=== PATIENT | male | born 1970 | race Caucasian/White ===

== ENCOUNTER 2021-03-08 16:16 | Emergency (ER) | payer OTHER, SELFPAY ==
[2021-03-08] VITALS (10 sets, daily range): BP systolic 176–212; BP diastolic 99–111; PULSE 90–127; RESP 15–23; TEMP 36.8; O2SAT 97–100
--- NOTE | ~2021-03-08 | CT_ITS ---
EXAMINATION: CT brain wo con INDICATION: Headache COMPARISON: None TECHNIQUE: Standard unenhanced head CT. The dose-length product (DLP) was 605.33 mGy-cm. The mA was a djusted according to patient size. Iterative reconstruction technique was employed. FINDINGS: There is no intracranial hemorrhage, acute infarction, or abnormal mass lesion. The ventric les are normal. There is no abnormal mass effect or midline shift. The garcia-white matter differentiat ion is normal. The basal cisterns are patent. The orbits are normal. The paranasal sinuses, mastoids and calvarium are normal. IMPRESSION: 1. No acute intracranial abnormality. Reviewed, dictated and finalized at location A.
--- NOTE | 2021-03-08 16:18 | ECG_ITS ---
Measurements Intervals [place] Rate: 112 P: 43 GA: 140 QRS: 19 QRSD: 110 T: 62 QT: 394 QTc: 539 Interpretive Statements SINUS TACHYCARDIA INCOMPLETE RIGHT BUNDLE BRANCH BLOCK DELAYED PRECORDIAL R/S TRANSITION ABNORMAL ECG Electronically Signed On 03-08-2021 20:09:04 CDT by Sterling Castellanos D.O.
[2021-03-08 17:54] LABS: Basophils Absolute Auto 0.1 K/mm3 (0.0-0.1); Basophils Percent Auto 1.1 % (0.2-1.2); Eosinophils Percent Auto 0.1 % (0-4.4); Hematocrit 41.4 % (42.0-52.0); Hemoglobin 13.1 g/dL (14.0-18.0); Immature Granulocyte Absolute 0.03 K/mm3 (0.00-0.031); Immature Granulocyte Percent A 0.3 % (0-0.5); Lymphocytes Absolute Auto 1.33 K/mm3 (0.9-3.2); Lymphocytes Percent Auto 13.4 % (18.3-44.2); Mean Corpuscular HGB Conc 31.6 g/dl (32-36); Mean Corpuscular Hemoglobin 28.1 pg (26-34); Mean Corpuscular Volume 88.8 fl (80-100); Mean Platelet Volume 9.7 fl (7.4-10.4); Monocytes Absolute Auto 0.7 K/mm3 (0.1-0.6); Monocytes Percent Auto 7.3 % (2.6-8.5); Neutrophils Absolute Auto 7.7 K/mm3 (1.3-6.7); Neutrophils Percent Auto 77.8 % (45.5-73.1); Platelet Count Result 282 k/mm3 (150-375); Red Blood Count 4.66 M/mm3 (4.6-6.20); Red Cell Distribution Width 13.3 % (11.5-14.5); White Blood Count 9.9 K/mm3 (4.5-10.0)
[2021-03-08 18:03] LABS: Alanine Aminotransferase 23 U/L (4-50); Alkaline Phosphatase 83 U/L (38-126); Anion Gap 10 mmol/L (8-16); Aspartate Amino Transferase 43 U/L (17-59); Bilirubin,Total 0.9 mg/dL (0.2-1.3); Blood Urea Nitrogen 11 mg/dL (9-20); Calcium 9.7 mg/dL (8.4-10.2); Carbon Dioxide 26 mmol/L (22-30); Chloride 96 mmol/L (98-107); Estimated CRCL calculation 104 ml/min; Estimated Glomerular Filt Rate > 60; Glucose 117 mg/dL (65-110); Potassium 3.9 mmol/L (3.4-5.0); Sodium 132 mmol/L (137-145)
--- NOTE | 2021-03-08 18:04 | ED.GENADULT ---
HPI - General Adult General Chief complaint: Recheck/Abnormal Lab/Rx Stated complaint: htn Time Seen by Provider: 03/08/21 17:39 Source: patient and RN notes reviewed History of Present Illness HPI narrative: Patient is a 50 y/o male complaining of headache and vomiting starting about 6 hours ago. He states that his headache is mild and describes it as diffuse pressure. He checked his BP and noticed it was in 190s. He states that he has history of hypertension and he has been compliant with his medications. Related Data Allergies Allergy/AdvReac Type Severity Reaction Status Date / Time NKDA Allergy Unknown Unknown Uncoded 03/08/21 18:02 NKFA Allergy Unknown Unknown Uncoded 03/08/21 18:02 Review of Systems Constitutional: Constitutional: Denies chills, Denies fever(s), Reports headache(s) and Denies weakness Eyes: Eyes: Denies blurry vision ENT: Reports headache(s) and Denies neck pain Cardiovascular: Cardiovascular: Denies chest pain and Denies dyspnea Respiratory: Respiratory: Denies cough and Denies dyspnea Gastrointestinal: Gastrointestinal: Denies abdominal pain, Denies diarrhea, Reports nausea and Reports vomiting Genitourinary: Genitourinary: Denies hematuria and Denies dysuria Musculoskeletal: Musculoskeletal: Denies back pain and Denies neck pain Neurologic: Reports headache(s) and Denies weakness [facility] Family History Family History Mother Family history of coronary artery disease Social History Social History Smoking status: Never smoker Alcohol intake: current Exam Const: General: no acute distress and well developed Orientation/consciousness: oriented to person, oriented to place, oriented to time and patient oriented x3 HENMT: Head: normocephalic Ears: external ears normal General nose exam: Normal external nose present Eyes: General: appearance normal, both eyes and all related structures Conjunctivae: conjunctivae normal Neck: Neck: normal visual inspection and full ROM Chest: Chest palpation & inspection: normal inspection of the chest and no tenderness Resp: Effort & Inspection: normal respiratory effort Auscultation: clear to auscultation bilaterally Cardio: Rate: tachycardic Rhythm: regular rhythm GI: GI Palp: No abdominal tenderness and Yes Soft to palpation Skin: General skin exam: normal color and turgor normal Neuro: General: oriented to person, oriented to place, oriented to time and patient oriented x3 Cranial nerves: Yes CN's II-XII intact bilaterally Cognition (Neuro): normal cognition Speech: normal speech Motor exam (neuro): 5/5 motor strength present throughout Sensory Exam: normal sensation Coordination: ebobnu-je-uxyx test normal and bqvi-ya-yfny test normal Extrem: General: normal to inspection, full ROM and no pedal edema Psych: Appearance: grossly normal Mental Status: mental status grossly normal Affect: Anxious affect present Course Reevaluation(s) Reevaluation #1: Rechecked. Patient feels better. He has no significant headache. Date: 03/08/21 Time: 20:17 Vital Signs Vital signs: Vital Signs Temperature 36.8 C 03/08/21 16:18 Pulse Rate 127 H 03/08/21 16:18 Respiratory Rate 17 03/08/21 16:18 Blood Pressure 212/106 H 03/08/21 16:18 Pulse Oximetry 100 03/08/21 16:18 Temperature 36.8 C 03/08/21 16:18 Pulse Rate 90 03/08/21 20:36 Respiratory Rate 18 03/08/21 20:36 Blood Pressure 176/99 H 03/08/21 20:36 Pulse Oximetry 99 03/08/21 20:36 Medical Decision Making Vital Signs Vital Signs: Vital Signs Temperature 36.8 C 03/08/21 16:18 Pulse Rate 127 H 03/08/21 16:18 Respiratory Rate 17 03/08/21 16:18 Blood Pressure 212/106 H 03/08/21 16:18 Pulse Oximetry 100 03/08/21 16:18 Temperature 36.8 C 03/08/21 16:18 Pulse Rate 90 03/08/21 20:36 Respiratory Rate 18 03/08/21 20:36 Blood P
[2021-03-08] MEDS: lisinopriL 20 MG TABLET PO (18:07)
[2021-03-08] MEDS: hydroCHLOROthiazide 25 MG TABLET PO (18:07)
[2021-03-08 18:29] LABS: Troponin I < 0.012 ng/mL (0.000-0.034)
== END 2021-03-08 20:38 | disposition home or self-care (01) ==
PROVIDERS: Emergency Provider Emergency Medicine
DX: I10 Essential (primary) hypertension (principal); R51.9 Headache, unspecified; R00.0 Tachycardia, unspecified; I45.10 Unspecified right bundle-branch block
CPT/HCPCS: 36415; 70450; 80053; 84484; 85025; 93005; 99284; A9270

== ENCOUNTER 2022-05-23 13:49 | Emergency (ER) | payer OTHER, SELFPAY ==
--- NOTE | ~2022-05-23 | XR_ITS ---
Clinical Indication: Cough PA and lateral views of the chest: Comparison: 06/26/2015 Findings: Stable dense right upper lobe pulmonary nodule measuring 3.3 cm in diameter. No other pulmo nary abnormality seen. Cardiomediastinal silhouette is within normal limits. Bones and soft tissues are unremarkable. Impression: Stable 3.3 cm dense right upper lobe pulmonary nodule. No acute abnormality seen. Reviewed, dictated and finalized at location . [employer] [facility] Impression: Stable 3.3 cm dense right upper lobe pulmonary nodule. No acute abnormality seen.
[2022-05-23 14:07] VITALS: BP 126/79; PULSE 107; RESP 20; TEMP 36.7; O2SAT 98
--- NOTE | 2022-05-23 14:07 | ED.URI ---
HPI - URI/Sore Throat General Chief Complaint: Upper Respiratory Infection Stated Complaint: fever,congestion,rib pain Time Seen by Provider: 05/23/22 14:07 Source: patient Mode of arrival: ambulatory Limitations: no limitations History of Present Illness HPI Narrative: 51-year-old male presents with complaint of, chest congestion fatigue, fever for 2-3 days. Reports today he is having rib pain/ soreness at rest and with coughing. Denies shortness of breath. Here because he is concerned that He may have pneumonia. Is taking whyo-qwz-icebqay medications without relief of cough. All systems reviewed and negative except as noted above. Related Data Home Medications Medication Instructions Recorded Confirmed amlodipine 10 mg tablet 10 mg PO DAILY 05/23/22 05/23/22 losartan 100 1 tablet PO DAILY 05/23/22 05/23/22 mg-hydrochlorothiazide 25 mg tablet pantoprazole 40 mg tablet,delayed 40 mg PO DAILY 05/23/22 05/23/22 release rosuvastatin 10 mg tablet 10 mg PO DAILY 05/23/22 05/23/22 Allergies Allergy/AdvReac Type Severity Reaction Status Date / Time NKDA Allergy Unknown Unknown Uncoded 05/23/22 14:06 Review of Systems Review of Systems: CONSTITUTIONAL: Denies fever, chills, or sweats. EYES: Denies visual changes, redness, or discharge. ENT: Denies rhinorrhea, congestion, sore throat, or otalgia. CARDIOVASCULAR: Denies chest pain, palpitations, or edema. RESPIRATORY: Reports cough, chest congestion. Denies dyspnea. GASTROINTESTINAL: Denies abdominal pain, nausea, vomiting, or diarrhea. GENITOURINARY: Denies dysuria or hematuria. SKIN: Denies rash or itching. MUSCULOSKELETAL: Denies back pain, joint pain, or myalgia. NEUROLOGIC: Denies headache, numbness, or weakness. PSYCHIATRIC: Denies anxiety or depression. All other systems reviewed are negative, except as documented in HPI. [facility] Family History Family History Mother Family history of coronary artery disease Social History Social History Smoking status: Never smoker Alcohol intake: current Comments At time of signature, agree with nursing past medical, surgical, social and family history. There is no relevant family history pertinent to the presenting complaint. Exam Narrative: GENERAL: This is a well-nourished, well-developed patient, in no apparent distress. HEAD: normocephalic, atraumatic. EYES: PERRL. Sclera clear/white. Vision is grossly intact. EARS: External ears normal, auditory canals clear and without drainage, TMs normal without perforation. Hearing grossly intact. NOSE: External nose normal with no obvious nasal discharge, nares without redness, no rhinorrhea. THROAT: Mucous membranes moist, posterior pharynx clear. NECK: Neck supple, non-tender without lymphadenopathy, masses or thyromegaly. CARDIOVASCULAR: Regular rate and rhythm without murmurs, gallops, or rubs. RESPIRATORY: Clear to auscultation. Breath sounds equal bilaterally. No wheezes, rales, or rhonchi. SKIN: warm, Dry, intact with no suspicious lesions or rash, good texture and turgor. NEURO: awake, alert, and oriented to person, place and time. There were no obvious focal neurologic abnormalities. EXTREMITIES: No joint tenderness, effusion, or edema noted. Course Course Level of Care: Express Care Visit Vital Signs Vital signs: Vital Signs Temperature 36.7 C 05/23/22 14:07 Pulse Rate 107 H 05/23/22 14:07 Respiratory Rate 05/23/22 14:07 Blood Pressure 126/79 05/23/22 14:07 Pulse Oximetry 98 05/23/22 14:07 Oxygen Delivery Room Air 05/23/22 14:07 Temperature 36.7 C 05/23/22 14:07 Pulse Rate 107 H 05/23/22 14:07 Respiratory Rate 05/23/22 14:07 Blood Pressure 126/79 05/23/22 14:07 Pulse Oximetry 98 05/23/22 14:07 Oxygen Delivery Room Air 05/23/22 14:07 reviewed MDM - URI/Sore Throat MDM Narrative Medi
== END 2022-05-23 14:45 | disposition home or self-care (01) ==
PROVIDERS: Emergency Provider Nurse Practitioner Family
DX: J06.9 Acute upper respiratory infection, unspecified (principal); R05.9 Cough, unspecified; Z20.822 Contact with and (suspected) exposure to COVID-19; E78.00 Pure hypercholesterolemia, unspecified; I10 Essential (primary) hypertension; K21.9 Gastro-esophageal reflux disease without esophagitis
CPT/HCPCS: 71046; 87426; 99213; C9803; G0463

== ENCOUNTER 2023-08-04 14:39 | Emergency (ER) | payer OTHER, SELFPAY ==
--- NOTE | ~2023-08-04 | CT_ITS ---
EXAMINATION: CT cervical spine wo con DATE: 08/04/2023 15:35 INDICATION: neck injury TECHNIQUE: Computed tomography (CT) of the cervical spine was performed without intravenous contrast. Automated exposure control and iterative reconstruction technique were employed. The dose-length pro duct was 406.78 mGy-cm. COMPARISON: None. FINDINGS: Vertebral Body Alignment: Intact. Craniocervical and atlantoaxial alignment: Moderate degenerative change. Alignment intact. Osseous structures/fracture: No evidence of a lytic or blastic process in the visualized spine. No e vidence of acute fracture. Cervical soft tissues: The paraspinal soft tissues planes are maintained. Degenerative changes: Degenerative changes, without severe neural foraminal or central canal narrowin g. IMPRESSION: No acute fracture or traumatic malalignment in the cervical spine. Reviewed, dictated and finalized at location K.
--- NOTE | ~2023-08-04 | CT_ITS ---
EXAMINATION: CT brain wo con DATE: 08/04/2023 15:35 INDICATION: head injury . TECHNIQUE: Computed tomography (CT) of the head was performed without intravenous contrast. The mA wa s adjusted according to patient size. Iterative reconstruction technique was employed. The dose-lengt h product was 681.00 mGy-cm. COMPARISON: 03/08/2021. FINDINGS: No acute intracranial hemorrhage or extra-axial fluid collection. No hydrocephalus, mass, or herniation. No acute ischemic infarct. Unremarkable dural venous sinus attenuation. No acute osseous abnormality. The aerated spaces are clear. IMPRESSION: No acute intracranial process. Reviewed, dictated and finalized at location K.
--- NOTE | ~2023-08-04 | XR_ITS ---
EXAM: XR hip RT 2V w AP pelvis DATE: 08/04/2023 15:37 HISTORY: right hip and knee injury . COMPARISON: None available. FINDINGS: Normal mineralization. No fracture or dislocation. No lytic or blastic lesion. Degenerativ e changes in the hips. No erosion or periosteal change. Soft tissues within normal limits. IMPRESSION: No acute osseous finding in the right hip or pelvis. Reviewed, dictated and finalized at location K.
--- NOTE | ~2023-08-04 | XR_ITS ---
EXAMINATION: XR ribs RT 2V Exam Date/Time: 08/04/2023 15:15 CDT HISTORY: right rib injury Comparison: 05/23/2022. RESULT: Lines, tubes, and devices: None. Lungs and pleura: Stable calcified benign pulmonary mass.. Lungs otherwise clear. Cardiothymic silhouette: Stable. Other: No acute osseous or upper abdominal finding. IMPRESSION: No acute cardiopulmonary process. No acute osseous finding in the right ribs Reviewed, dictated and finalized at location K.
--- NOTE | ~2023-08-04 | XR_ITS ---
EXAM: XR knee RT 3V DATE: 08/04/2023 15:36 HISTORY: knee injury/pain . COMPARISON: None available. FINDINGS: Partially visualized left knee hardware. Lateral view limited by obliquity. Normal minerali zation. No fracture or dislocation. No lytic or blastic lesion. Mild tricompartmental right knee oste oarthritis. No erosion or periosteal change. Soft tissue swelling over the patellar tendon. IMPRESSION: No acute osseous finding in the right knee. Reviewed, dictated and finalized at location K.
[2023-08-04 14:45] VITALS: BP 155/94; PULSE 97; RESP 19; TEMP 37.4; O2SAT 99
--- NOTE | 2023-08-04 14:47 | ECG_ITS ---
Measurements Intervals [place] Rate: 88 P: 27 CT: 170 QRS: -17 QRSD: 108 T: 12 QT: 375 QTc: 456 Interpretive Statements SINUS RHYTHM INCOMPLETE RIGHT BUNDLE BRANCH BLOCK DELAYED PRECORDIAL R/S TRANSITION LEFT VENTRICULAR HYPERTROPHY BORDERLINE ECG COMPARED TO ECG 03/08/2021 16:26:52 SINUS RHYTHM NOW PRESENT LEFT VENTRICULAR HYPERTROPHY NOW PRESENT Electronically Signed On 08-04-2023 19:04:20 CDT by Sterling Castellanos D.O.
[2023-08-04] MEDS: SODIUM CHLORIDE 0.9% IV 1,000 ML 999 ML IV CONT (14:56)
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
[2023-08-04 15:45] VITALS: BP 158/92; PULSE 90; RESP 20; O2SAT 99
[2023-08-04 15:51] LABS: Basophils Absolute Auto 0.14 K/mm3 (0.00-0.10); Eosinophils Absolute Auto 0.05 K/mm3 (0.02-0.50); Eosinophils Percent Auto 0.4 % (1.0-6.0); Hematocrit 38.7 % (40.0-54.0); Immature Granulocyte Percent A 0.7 % (0.0-0.0); Lymphocytes Absolute Auto 1.68 K/mm3 (1.10-4.50); Lymphocytes Percent Auto 12.5 % (18.0-42.0); Mean Corpuscular Hemoglobin 26.4 pg (27.0-31.0); Mean Corpuscular Volume 85.1 fL (78.0-102.0); Mean Platelet Volume 9.2 fl (8.7-11.0); Neutrophils Absolute Auto 10.62 K/mm3 (1.70-7.20); Neutrophils Percent Auto 79.4 % (50.0-70.0); Platelet Count Result 338 K/mm3 (150-420); Red Blood Count 4.55 M/mm3 (4.70-6.10); Red Cell Distribution Width 12.5 % (11.6-14.4); White Blood Count 13.4 K/mm3 (4.8-10.8)
[2023-08-04 16:06] LABS: Alanine Aminotransferase 36 U/L (16-63); Albumin Level 3.9 g/dL (3.4-5.0); Alkaline Phosphatase 73 U/L (46-116); Anion Gap 13 mmol/L (8-16); Aspartate Amino Transferase 23 U/L (15-37); Bilirubin,Total 0.5 mg/dL (0.00-1.00); Blood Urea Nitrogen 13 mg/dL (7-18); Calcium 8.8 mg/dL (8.5-10.1); Carbon Dioxide 24 mmol/L (21-32); Chloride 102 mmol/L (98-108); Creatine Kinase 203 U/L (39-308); Estimated CRCL calculation 58 ml/min; Estimated Glomerular Filt Rate > 60; Glucose 108 mg/dL (70-99); Osmolality Calculated 289 mOsm/kg (285-295); Potassium 3.4 mmol/L (3.5-5.1); Sodium 139 mmol/L (136-145); Total Protein 7.4 g/dL (6.4-8.2)
[2023-08-04 16:19] VITALS: BP 153/92; PULSE 96; RESP 19; TEMP 37.2; O2SAT 100
[2023-08-04] MEDS: IBUPROFEN 600 MG TABLET PO (16:23)
[2023-08-04] MEDS: POTASSIUM BICARBONATE 25 MEQ TABEF 50 MEQ PO (16:24)
== END 2023-08-04 16:30 | disposition home or self-care (01) ==
PROVIDERS: Emergency Provider Emergency Medicine
DX: S29.012A Strain of muscle and tendon of back wall of thorax, initial encounter (principal); I10 Essential (primary) hypertension; Z79.899 Other long term (current) drug therapy; Z20.822 Contact with and (suspected) exposure to COVID-19; V86.65XA Passenger of 3- or 4- wheeled all-terrain vehicle (ATV) injured in nontraffic accident, initial encounter
CPT/HCPCS: 36415; 70450; 71100; 72125; 73502; 73562; 80053; 82550; 85025; 93005; 96360; 99284; A9270; J7030

== ENCOUNTER 2024-06-03 08:00 | Emergency (ER) | payer OTHER, SELFPAY ==
[2024-06-03 08:14] VITALS: BP 145/79; PULSE 100; RESP 18; TEMP 36.4; O2SAT 100
--- NOTE | 2024-06-03 08:15 | ED.EAR ---
HPI - Ear Problem General Chief complaint: Ear Stated complaint: RT Ear Pain Time Seen by Provider: 06/03/24 08:16 Source: patient, RN notes reviewed and old records reviewed Mode of arrival: ambulatory Limitations: no limitations History of Present Illness HPI Narrative: patient presents with complaints of right ear pain that began yesterday. He reports that for a few days he has had a little bit of a runny nose, says this was not terribly bothersome. Began with ear pain and pressure last night. Reports that his took his temperature and told him he had a fever, but he is not sure what it was. He took [id number] medication with moderate relief. States that ear pain is not as bad this morning as it was yesterday, but is still painful. He denies any loss of hearing. He voices no other concerns or complaints at this time. Denies any injury or trauma Related Data Home Medications ?Medication ?Instructions ?Recorded ?Confirmed ?Last Taken ?Type amlodipine 10 mg tablet 10 mg PO DAILY 05/23/22 08/04/23 Unknown History losartan 100 1 tablet PO DAILY 05/23/22 08/04/23 Unknown History mg-hydrochlorothiazide 25 mg tablet pantoprazole 40 mg tablet,delayed 40 mg PO DAILY 05/23/22 08/04/23 Unknown History release rosuvastatin 10 mg tablet 10 mg PO DAILY 05/23/22 08/04/23 Unknown History gabapentin 300 mg capsule 300 mg PO BID 08/04/23 08/04/23 Unknown History Allergies Allergy/AdvReac Type Severity Reaction Status Date / Time NKDA Allergy Unknown Unknown Uncoded 06/03/24 08:09 Review of Systems Review of Systems: All systems reviewed & are unremarkable except as noted in HPI and below Constitutional: Constitutional: Reports no additional constitutional complaints ENT: Reports system reviewed and no additional complaints, except as documented, Reports otalgia and Reports nasal discharge Cardiovascular: Cardiovascular: Reports no additional cardiovascular complaints Respiratory: Respiratory: Reports no additional respiratory complaints Gastrointestinal: Gastrointestinal: Reports no additional gastrointestinal complaints [facility] Past Medical History Medical History Essential hypertension Family History Family History Mother Family history of coronary artery disease Social History Social History Smoking status: Never smoker Alcohol intake: current Comments At the time of my signature, I reviewed and agree with the nursing past medical, surgical, social, and family history. There is no relevant family history pertinent to the patient complaint. Exam Const: General: cooperative, no acute distress, alert and awake Orientation/consciousness: oriented to person, oriented to place and oriented to time HENMT: Head: normal to inspection Ears: TM abnormal erythematous on the right, with fluid behind the TM bilateral and with loss of landmarks on the right Resp: Effort & Inspection: normal respiratory effort and able to speak in complete sentences Auscultation: clear to auscultation bilaterally, no crackles, no rales, no rhonchi and no wheezes Cardio: Palpation: normal PMI Rate: regular rate Rhythm: regular rhythm Heart sounds: S1 normal heart sound present and S2 normal heart sound present Neuro: General: oriented to person, oriented to place and oriented to time Cranial nerves: Yes CN's II-XII intact bilaterally Psych: Appearance: grossly normal Thought process: Normal thought process present Insight: Good insight present (Psych) Judgement: Good judgement present (Psych) Course Course Level of Care: Express Care Visit Vital Signs Vital signs: Vital Signs Temperature 97.5 F L 06/03/24 08:14 Pulse Rate 100 06/03/24 08:14 Respiratory Rate 18 06/03/24 08:14 Blood Pressure 145/79 H 06/03/24 08:14 Pulse Oximetry 100 06/03/24 08:14 Oxygen Delivery Room Air 06/03/24 08:14 Temperature 97.5 F L 06/03/24 08:14 Pulse Rate 100 06/03/24 08:14 Respiratory Rate 18 06/03/24 08:14 Blood Pressure 145/79 H 06/03/24 08:14 Pulse Oximetry 100 06/03/24 08:14 Oxygen Delivery Room Air 06/03/24 08:14 Reviewed Medical Decision Making MDM Narrative Medical decision making narrative: history and exam consistent with otitis media. Patient nontoxic appearing, stable for discharge home with p.o. antibiotic therapy Discharge instructions reviewed with patient, as well as provided in writing per nursing staff. The instructions also include specific and strict return/GO TO THE ER as well as f/u information. All questions have been answered, and the patient deny any further questions with discharge and discharge plan. Some parts of this dictation were generated by voice recognition software and may contain typographical and/or grammatical inaccuracies. Differential Diagnosis Differential Diagnosis: otitis media, otitis externa, otalgia Medical Records Medical records reviewed: Yes I reviewed the external patient's medical records. Vital Signs Vital Signs: Vital Signs Temperature 97.5 F L 06/03/24 08:14 Pulse Rate 100 06/03/24 08:14 Respiratory Rate 18 06/03/24 08:14 Blood Pressure 145/79 H 06/03/24 08:14 Pulse Oximetry 100 06/03/24 08:14 Oxygen Delivery Room Air 06/03/24 08:14 Temperature 97.5 F L 06/03/24 08:14 Pulse Rate 100 06/03/24 08:14 Respiratory Rate 18 06/03/24 08:14 Blood Pressure 145/79 H 06/03/24 08:14 Pulse Oximetry 100 06/03/24 08:14 Oxygen Delivery Room Air 06/03/24 08:14 reviewed Lab Data Lab results reviewed: Yes I reviewed the patient's lab results. Lab results narrative: reviewed Discharge Plan Discharge Clinical Impression: Otitis media Qualifiers: Otitis media type: suppurative Chronicity: acute Laterality: right Recurrence: not specified as recurrent Spontaneous tympanic membrane rupture: without spontaneous rupture Qualified Code(s): H66.001 - Acute suppurative otitis media without spontaneous rupture of ear drum, right ear Patient Disposition: Home, Self-Care Condition: Stable Instructions: Antibiotic Form, Earache (ED) Additional Instructions: take medications as prescribed. Follow-up primary care provider. Emergency department for new or worse symptoms Patient Language: [place] Citizen Prescriptions: New amoxicillin 875 mg tablet 875 mg PO Q12H Qty: 20 0RF No Action gabapentin 300 mg capsule 300 mg PO BID losartan-hydrochlorothiazide 100-25 mg tablet 1 tablet PO DAILY amlodipine 10 mg tablet 10 mg PO DAILY pantoprazole 40 mg tablet,delayed release (DR/EC) 40 mg PO DAILY rosuvastatin 10 mg tablet 10 mg PO DAILY Follow-up/Referrals: Jacqueline,William [Other] - 2 Weeks Time of Disposition: 08:25
== END 2024-06-03 08:26 | disposition home or self-care (01) ==
PROVIDERS: Emergency Provider Nurse Practitioner Family
DX: H66.001 Acute suppurative otitis media without spontaneous rupture of ear drum, right ear (principal); I10 Essential (primary) hypertension
CPT/HCPCS: 99213; G0463

== ENCOUNTER 2024-12-31 15:15 | Emergency (ER) | payer OTHER, SELFPAY ==
--- OUTSIDE RECORDS SUMMARY | 2024-12-31 15:19 | XMS_ITS | Patient Health Record ---
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 Role Phone Maximino Rubi Unavailable [phone] Reason For Referral No Information Medications Medication SIG (Take, Route, Frequency, Duration) Notes Start Date End Date Status PIMECROLIMUS 1 % TOPICAL CREAM *Reorder from [facility] for eRx and Interaction Alerts* 06/12/2023 Active Doxycycline Hyclate 20 MG Oral 06/12/2023 Active Gabapentin 300 MG Oral 06/12/2023 A ctive Rosuvastatin Calcium 10 MG Oral 06/12/2023 Active amLODIPine Besylate 10 MG Oral 06/12/2023 Active HYDROcodone-Acetamino phen 10-325 MG Oral 06/12/2023 Active Losartan Potassium-HCTZ 100-25 MG Oral 06/12/2023 Active Naltrexone HCl 50 MG Oral 06/12/2023 Active Pantoprazole Sodium 40 MG Oral 06/12/2023 Active Plan Of Treatment No Information Insurance Providers Payer Name Payer Address Payer Phone Subscriber Number Group Number Insured Name Patient Relationship to Insured Coverage Start Date Coverage End Date [facility] [address] [place] [phone] [id number] JOSH CLEARY Self - patient is the insured Medical (General) History Surgical History Surgery Date(Month/Year) Reconstructive surgery 09/18/2022
--- OUTSIDE RECORDS SUMMARY | 2024-12-31 15:19 | XMS_ITS | Clinical Summary ---
Author Organization [employer] [address] [place] [address] [place] [id number] Care Team Providers Care Non Morse Intercept Technician Name Role Phone William Phillips DO Primary Care Provider [phone] Allergies No known active allergies Medications pimecrolimus (ELIDEL) 1 % Cream APPLY TOPICALLY TO FACE RASH TWICE DAILY NEEDED 06/03/19 24 Active buPROPion HCL (Wellbutrin XL) 150 mg Extended Release 24 hour tabletIndications :ALMA DELIA (generalized anxiety disorder) Take 1 Tablet (150 mg) by mouth daily in the morning. 90 Tablet 3 01/14/20 24 Active losartan-hydroCHL OROthiazide (HYZAAR) 100-25 mg tabletIndications :HTN (hypertension), benign TAKE 1 TABLET BY MOUTH DAILY 100 Tablet 3 11/08/19 25 Active amLODIPine (NORVASC) 10 mg tabletIndications :HTN (hypertension), benign TAKE 1 TABLET(10 MG) BY MOUTH DAILY 100 Tablet 3 12/24/19 25 Active pantoprazole (PROTONIX) 40 mg Tablet, Delayed Release (E.C.)Indications :Gastroesophageal reflux disease, unspecified whether esophagitis present TAKE 1 TABLET(40 MG) BY MOUTH DAILY 100 Tablet 3 12/24/19 25 Active rosuvastatin (CRESTOR) 10 mg tabletIndications :Hyperlipidemia, unspecified hyperlipidemia type TAKE 1 TABLET BY MOUTH AT BEDTIME 100 Tablet 3 12/24/19 25 Active pantoprazole (PROTONIX) 40 mg Tablet, Delayed Release (E.C.)Indications :Gastroesophageal reflux disease, unspecified whether esophagitis present TAKE 1 TABLET(40 MG) BY MOUTH DAILY 100 Tablet 3 11/05/19 24 025 Discontinued amLODIPine (NORVASC) 10 mg tabletIndications :HTN (hypertension), benign TAKE 1 TABLET(10 MG) BY MOUTH DAILY 100 Tablet 3 11/05/19 24 025 Discontinued rosuvastatin (CRESTOR) 10 mg tabletIndications :Hyperlipidemia, unspecified hyperlipidemia type take 1 tablet by mouth at bedtime 100 Tablet 3 11/05/19 24 025 Discontinued Active Problems Problem Noted Date Diagnosed Date Uncomplicated alcohol dependence 01/14/2024 Prediabetes 01/14/2024 ALMA DELIA (generalized anxiety disorder) 01/14/2024 LAURA (obstructive sleep apnea) 04/20/2022 Cyst of left kidney 09/27/2021 Varicose veins of both lower extremities 022 Gastroesophageal reflux disease 06/12/2019 Hyperlipidemia 06/12/2019 HTN (hypertension), benign 06/12/2019 Resolved Problems Problem Noted Date Diagnosed Date Resolved Date Alcohol dependence in remission 04/20/2023 01/14/2024 Heavy alcohol use 02/04/2021 04/20/2023 Obesity (BMI 30.0-34.9) 06/12/201905/22 Encounters Date Type Department Care Team Description 12/23/2024 Refill [facility], [address] [place] [phone] William Phillips DO HTN (hypertension), benign; Gastroesophageal reflux disease, unspecified whether esophagitis present; Hyperlipidemia, unspecified hyperlipidemia type 11/11/2024 External Device Data [facility] ABSTRACTION Provider, Abstract 11/07/2024 [facility], [address] [place] [phone] William Phillips DO HTN (hypertension), benign from Last 3 Months Immunizations Immunization Administration Dates Next Due (HihoCoder)(12 YR UP) COVID-19 VACCINE - EMERGENCY USE AUTHORIZATION, MRNA, [id number](PF) 30 MCG/0.3 ML IM SUSP 05/30/2021,08/20/2020,08/02/2020 INFLUENZA VACCINE QUADRIVALE NT 3 YR UP PF IM 02/04/2019 Influenza Seasonal Unspecifi ed Formulation IM 02/17/2021,02/04/2020 Family History Medical History Relation Name Comments Heart Failure Father Healthy Mother Anton Sin High Cholesterol Mother Anton Sin Hypertension Mother Anton Sin Colon Cancer Neg Hx Relation Name Status Comments Father Mother Anton Sin Alive Social History Tobacco Use Types Packs/Day Years Used Date Smoking Tobacco: Never Smokeless Tobacco: Never Alcohol Use Standard Drinks/Week Comments Yes 0 (1 standard drink = 0.6 oz pure alcohol) 10 drinks weekly- just weekends now Sex and Gender Information Value Date Recorded Sex Assigned at Male 02/13/2024 10:44 AM CDT 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 Gender Identity Male 02/13/2024 10:44 AM CDT Sexual Orientation Straight 02/13/2024 10 :44 AM CDT Last Filed Vital Signs Vital Sign Reading Time Taken Comments Blood Pressure 120/70 08/26/2024 1:19 PM CDT Pulse 86 08/26/2024 1:19 PM CDT Temperature 36.3 C (97.3 F) 08/26/2024 1:19 PM CDT Respiratory Rate 18 08/26/2024 1:19 PM CDT Oxygen Saturation 97% 08/26/2024 1:19 PM CDT Inhaled Oxygen Concentration - - Weight 95 kg (209 lb 6.4 oz) 08/26/2024 1:19 PM CDT Height 205.7 cm (6' 9) 08/26/2024 1:19 PM CDT Body Mass Index 22.44 08/26/2024 1:19 PM CDT Plan of Treatment Upcoming Encounters Date Type Department Care Team (Late st Contact Info) Description 08/26/2025 9:20 AM CDT Office Visit [facility], [address] [place] [phone] William Phillips DO [address] [phone] Health Maintenance Due Date Last Done Comments DTAP/TDAP/TD VACCINES (1 - Tdap) 1988 FIT-DNA Q 3 years 2014 FIT/FOBT Q 1 year 2014 Flex Sig/CT Colonography Q 5 years 2014 ZOSTER VACCINE (1 of 2) 08/28/2019 COVID-19 Vaccine (2023- 5 season) 2024 05/30/2021, 08/20/2020, 08/02/2020 INFLUENZA VACCINE (#1) 2024 , 08/26/2024, 04/20/2023, Additional history exists COLORECTAL SCREENING 08/05/2030 08/05/2020, 08/05/2020, 08/05/2020 Colorectal Cancer Screening 08/05/2030 Preventative Visit- Commercial Completed 0 08/26/2024, 01/14/2024, 10/13/2022, Additional history exists Procedures Procedure Name Priority Date/Time Associated Diagnosis Comments COLONOSCOPY REPORT 08/05/2020 7: 08 AM CDT from Last 3 Months or Most Recently Relevant to Health Maintenance Results * COLONOSCOPY REPORT (08/05/2020 7:08 AM CDT) Narrative Procedure Note William Grewal MD - 08/05/2020 7:07 AM CDT [facility] Endoscopy Patient Name: Mirza Sin Procedure Date: 08/05/2020 Date of : 1970 Admit Type: Outpatient Age: 49 Attending MD: William Grewal MD Procedure: Colonoscopy Indications: Colorectal cancer screening, avg risk family history. No prior exam of colon. Providers: William Grewal MD Referring MD: William Phillips DO Medicines: TIVA Procedure: Informed consent was obtained for the procedure, including moderate sedation after risks were discussed. Based on the pre-procedure assessment, including review of the patient's medical history, medications, allergies, and review of systems, the patient was deemed to be an appropriate candidate for sedation. A timeout was performed. Continuous ECG monitoring, pulse oximetry, blood pressure monitoring, and direct observation were performed. The Colonoscope was introduced through the anus and advanced to the cecum, identified by appendiceal orifice and ileocecal valve. The colonoscopy was performed without difficulty. The patient tolerated the procedure well. The quality of the bowel preparation was excellent. Estimated Blood Loss: Estimated blood loss: none. Findings: Internal hemorrhoids were seen on retroflexion. Remainder appeared normal to the cecum. No evidence for polyp, colon cancer or inflammatory bowel disease. Cecum and ileocecal valve well visualized and appeared normal. Complications: No immediate complications. Impression: 1. Internal hemorrhoids 2. Otherwise normal colonoscopy. No polyp or colon cancer. Recommendation: Reassurance. Repeat colonoscopy in 10 years for colon cancer screening. Follow up with Dr. Phillips for medical issues. William Grewal MD 08/05/2020 7:07:27 AM This report has been signed electronically. Number of Addenda: 0 Procedure Date: 08/05/2020 6:37:[address] [place] [address] William Grewal MD GI PROCEDURE ORDERABLES Final Re sult from Last 3 Months or Most Recently Relevant to Health Maintenance Insurance Advance Directives For more information, please contact: [phone] * Full Code (Latest Code Status on File) Date Activated Date Inactivated Comments 08/05/2020 6:35 AM 08/05/2020 10:10 AM Care Teams Non Morse Intercept Technician Relationship Specialty Start Date End Date William Phillips DO [address] [place] [address] PCP - General Internal Medicine 06/12/19
--- OUTSIDE RECORDS SUMMARY | 2024-12-31 15:19 | XMS_ITS | Clinical Summary ---
Author Organization [facility] Address [address] [place] [address] Care Team Providers Care [employer] Name Role Phone William Phillips DO Primary Care Provider [phone] Allergies No known active allergies Medications amLODIPine (NORVASC) 10 mg tablet Take 1 tablet (10 mg total) by mouth daily Active losartan-hydroc hlorothiazide (HYZAAR) 100-25 mg per tablet Take 1 tablet by mouth daily Active rosuvastatin (CRESTOR) 10 mg tablet Take 1 tablet (10 mg total) by mouth daily Active pantoprazole DR (PROTONIX) 40 mg EC tablet Take 1 tablet (40 mg total) by mouth daily Active aspirin 325 mg enteric coated tabletIndicatio ns:Deep Vein Thrombosis Prevention Take 1 tablet (325 mg total) by mouth 2 (two) times a day 0 09/19/2022 Active docusate sodium (COLACE) 100 mg capsuleIndicati ons:constipatio n Take 1 capsule (100 mg total) by mouth 2 (two) times a day 09/19/2022 Active Active Problems Problem Noted Date Diagnosed Date Total knee replacement status, left 09/18/2022 Osteoarthritis of left knee 09/11/2022 GERD (gastroesophageal reflux disease) HLD (hyperlipidemia) 09/11/2022 HTN (hypertension) 09/11/2022 LAURA (obstructive sleep apnea) 09/11/2022 Surgical History Surgery Date Site/Laterality Comments KNEE ARTHROSCOPY several UPPER GASTROINTESTINAL ENDOSCOPY Medical History Medical History Date Comments Osteoarthritis of left knee HTN (hypertension) HLD (hyperlipidemia) LAURA (obstructive sleep apnea) GERD (gastroesophageal reflux disease) Family History Medical History Relation Name Comments Heart disease Mother Relation Name Status Comments Mother Social History Tobacco Use Types Packs/Day Years Used Date Smoking Tobacco: Never Smokeless Tobacco: Never Tobacco Cessation:Counseling Given: Not Answered AUDIT-C Answer Date Recorded Q1: How often do you have a drink containing alc ohol? 2-3 times a week 09/11/2022 Q2: How many drinks containi ng alcohol do you have on a typical day when you are drinking? 3 or 4 09/11/2022 Q3: How often do you have si x or more drinks on one occasion? Weekly 09/11/2022 Personal Safety Answer Date Recorded Have you ever been in or are you currently in a harmful physical or emotional relationship or is someone making you feel afraid or unsafe? 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 Gender Identity Not on file Sexual Orientation Not on file Obstetrics History Last Filed Vital Signs Vital Sign Reading Time Taken Comments Blood Pressure 132/80 09/19/2022 8:44 AM CDT Pulse 79 09/19/2022 8:44 AM CDT Temperature 36.7 C (98 F) 09/19/2022 8:44 AM CDT Respiratory Rate 17 09/19/2022 8:44 AM CDT Oxygen Saturation 100% 09/19/2022 8:44 AM CDT Inhaled Oxygen Concentration - - Weight 87 kg (191 lb 12.8 oz) 09/18/2022 6:17 AM CDT Height 172.7 cm (5' 8) 09/18/2022 6:17 AM CDT Body Mass Index 29.16 09/18/2022 6:17 AM CDT Plan of Treatment Health Maintenance Due Date Last Done Comments Colon Cancer Screening-Colonoscopy 1970 Depression Screening 1970 Hepatitis C Screening 1970 Prostate Cancer Screening-PSA 1969 DTaP/Tdap/Td Vaccine (1 - Tdap) 1980 Hepatitis B Screening 08/28/1987 Regular Well Visit/Exam 18-64 08/28/1987 Zoster Vaccine (1 of 2) 08/28/2019 Covid-19 Vaccine ( season) 2024 05/30/2021, 05/09/2021, 08/20/2020, Additional history exists Influenza Vaccine (#1) 2025 , 02/17/2021, 02/04/2020, Additional history exists Pneumococcal vaccine <65 Aged Out No longer eligible based on patient's age to complete this topic Medical Devices Implanted Type Area Senior C Web Developer Device Identifier Shelf Expiration Date Model / Serial / Lot [employer] [id number] Persona Cruciate Retaining Knee Left 9 Standard Component Femoral - [id number] Implanted:Qty: 1 on 09/18/2022 by Yonatan Parry MD at [facility] Left: Knee [employer] [id number] 06/02/2032 [id number] / / [id number] [employer] Persona 11mm Knee Left 8-11 E-F Insert Articular Vivacit-E [id number] - [id number] Implanted:Qty: 1 on 09/18/2022 by Yonatan Parry MD at [facility] Left: Knee [employer] [id number] 03/28/2027 [id number] / / [id number] [employer] [id number] Persona 2 Peg Knee Left F Baseplate Tibial Trabecular Metal - [id number] Implanted:Qty: 1 on 09/18/2022 by Yonatan Parry MD at [facility] Left: Knee [employer] [id number] 04/16/2032 [id number] / / [id number] [place] [address] [facility] CHO[facility] PLUS [facility] CHO[facility] PLUS [facility] CHOICE PLUS Advance Directives For more information, please contact: [phone] * Full Code (Latest Code Status on File) Date Activated Date Inactivated Comments 09/18/2022 10:40 AM 09/19/2022 4:43 PM Care Teams Cook [employer] Relationship Specialty Start Date End Date William Phillips DO PCP - General Internal Medicine 09/11/22
[2024-12-31 15:20] VITALS: BP 143/83; PULSE 89; RESP 18; TEMP 36.4; O2SAT 100
--- NOTE | 2024-12-31 15:51 | ED.EXTPRO ---
HPI - Extremity Problem General Chief complaint: Extremity Problem,Nontraumatic Stated complaint: painful veins Time Seen by Provider: 12/31/24 15:40 Source: patient and RN notes reviewed Mode of arrival: ambulatory Limitations: no limitations History of Present Illness HPI Narrative: 54-year-old male presents to the [facility] complaining of left calf pain for approximately 6 days. Patient denies any injury. Patient noticed increased redness swelling and pain to back of his left calf. Patient has a history of superficial thrombophlebitis of his right leg and a history varicose veins to both legs. Patient denies any chest pain or shortness of breath, dizziness, lightheadedness, or any other symptoms. Patient states he had recent surgery to his right knee 2 months ago was not on any blood thinners at that time. Patient denies any history of blood clots. Patient has not tried any to help with the pain. Related Data Home Medications ?Medication ?Instructions ?Recorded ?Confirmed ?Last Taken ?Type amlodipine 10 mg tablet 10 mg PO DAILY 05/23/22 12/31/24 Unknown History losartan 100 1 tablet PO DAILY 05/23/22 12/31/24 Unknown History mg-hydrochlorothiazide 25 mg tablet pantoprazole 40 mg tablet,delayed 40 mg PO DAILY 05/23/22 12/31/24 Unknown History release rosuvastatin 10 mg tablet 10 mg PO DAILY 05/23/22 12/31/24 Unknown History gabapentin 300 mg capsule 300 mg PO BID 08/04/23 12/31/24 Unknown History bupropion HCl 150 mg 24 hr tablet, mg PO 12/31/24 Unknown History extended release Allergies Allergy/AdvReac Type Severity Reaction Status Date / Time No Known Allergies Allergy Verified 12/31/24 15:17 Review of Systems Review of Systems: CONSTITUTIONAL: Denies fever, chills, or sweats. EYES: Denies visual changes, redness, or discharge. ENT: Denies rhinorrhea, congestion, sore throat, or otalgia. CARDIOVASCULAR: Denies chest pain, palpitations, or edema. RESPIRATORY: Denies cough or dyspnea. GASTROINTESTINAL: Denies abdominal pain, nausea, vomiting, or diarrhea. GENITOURINARY: Denies dysuria or hematuria. SKIN: Denies rash or itching. MUSCULOSKELETAL: Denies back pain, joint pain, or myalgia. Positive for left calf pain and swelling. NEUROLOGIC: Denies headache, numbness, or weakness. PSYCHIATRIC: Denies anxiety or depression. All other systems reviewed are negative, except as documented in HPI. [facility] Past Medical History Medical History Essential hypertension Family History Family History Mother Family history of coronary artery disease Social History Social History Smoking status: Never smoker Alcohol intake: current Comments At the time of my signature, I reviewed and agree with the nursing past medical, surgical, social, and family history. There is no relevant family history pertinent to the patient complaint. Exam Narrative: GENERAL: This is a well-nourished, well-developed adult, in no apparent distress. They are non ill-appearing, nontoxic appearing. HEAD: normocephalic, atraumatic. EYES: Sclera clear/white. Conjunctiva normal. Vision is grossly intact. Extraocular movements intact EARS: External ears normal. Hearing grossly intact. NOSE: External nose normal THROAT: Mucous membranes moist NECK: Neck supple, CARDIOVASCULAR: Regular rate and rhythm without murmurs, gallops, or rubs. RESPIRATORY: Clear to auscultation. Breath sounds equal bilaterally. No wheezes, rales, or rhonchi. SKIN: warm, Dry, intact with no suspicious lesions or rash, good texture and turgor. NEURO: awake, alert, and oriented to person, place and time. There were no obvious focal neurologic abnormalities. EXTREMITIES: Left lower extremity: There is redness to the posterior calf along with swelling. Posterior calf is tender to palpate and firm. No pain behind the knee. Neurovascular status intact. Capillary refill less than 2 seconds Course Course Emergency Course: Portions of this record may have been created with voice recognition software Level of Care: Express Care Visit Vital Signs Vital signs: Vital Signs Temperature 97.6 F 12/31/24 15:20 Pulse Rate 89 12/31/24 15:20 Respiratory Rate 18 12/31/24 15:20 Blood Pressure 143/83 H 12/31/24 15:20 Pulse Oximetry 100 12/31/24 15:20 Oxygen Delivery Room Air 08/13/25 15:20 Temperature 97.6 F 12/31/24 15:20 Pulse Rate 89 12/31/24 15:20 Respiratory Rate 18 12/31/24 15:20 Blood Pressure 143/83 H 12/31/24 15:20 Pulse Oximetry 100 12/31/24 15:20 Oxygen Delivery Room Air 12/31/24 15:20 Reviewed Transfer Transfered to: [facility] Transportation: Other (Private vehicle) Transfer rationale: Patient requires higher level care, rule out deep vein thrombosis or blood clot. Going to a facility with Ultrasound capabilities. Accepting physician: Dr. Loza MDM - Extremity (Nontraumatic) MDM Narrative Medical decision making narrative: Wells score of 3. There is concerns of patient having a DVT to the left calf. There is no ultrasound imaging capabilities at this facility. Given patient's symptoms, it is recommend the patient seek a higher level care and proceed immediately to the emergency department. Patient is agreeable to go to [facility]. Called over to [facility] and spoke with Dr. Loza who aware this patient and accepted this patient for transfer. Patient advised to remain NPO and proceed immediately to the ER. Differential Diagnosis Differential diagnosis: Likely cellulitis, superficial thrombophlebitis, lower extremity edema, deep vein thrombosis of lower extremity and other (Varicose veins, venous insufficiency) Critical Care Time Critical Care Time Critical Care Time: No Discharge Plan Discharge Clinical Impression: Pain of left calf Patient Disposition: Acute Care Hospital Condition: Stable Patient Language: Bruneian Prescriptions: No Action gabapentin 300 mg capsule 300 mg PO BID losartan-hydrochlorothiazide 100-25 mg tablet 1 tablet PO DAILY amlodipine 10 mg tablet 10 mg PO DAILY pantoprazole 40 mg tablet,delayed release (DR/EC) 40 mg PO DAILY rosuvastatin 10 mg tablet 10 mg PO DAILY bupropion HCl 150 mg tablet extended release 24 hr PO Follow-up/Referrals: Jacqueline,William [Other] Time of Disposition: 15:51
== END 2024-12-31 15:55 | disposition short-term general hospital (02) ==
DX: M79.662 Pain in left lower leg (principal); I10 Essential (primary) hypertension; Z86.72 Personal history of thrombophlebitis
CPT/HCPCS: 99212; G0463

== ENCOUNTER 2024-12-31 16:12 | Emergency (ER) | payer OTHER, SELFPAY ==
--- NOTE | ~2024-12-31 | US_ITS ---
EXAMINATION: US venous doppler [facility] DATE: 12/31/2024 17:01 INDICATION: Left calf pain and swelling TECHNIQUE: Grayscale ultrasound images without and with compression and Doppler ultrasound images of the left lower extremity veins were obtained. COMPARISON: 10/07/2013 FINDINGS: The visualized portions of left common femoral vein, profunda (deep) femoral vein, femoral vein, popl iteal vein, peroneal veins, posterior tibial veins, and greater saphenous vein outflow are patent. IMPRESSION: 1. No deep venous thrombosis. Reviewed, dictated and finalized at location A.
[2024-12-31 16:28] VITALS: BP 175/90; PULSE 98; RESP 16; TEMP 36.5; O2SAT 98
--- NOTE | 2024-12-31 16:38 | ED.EXTPRO ---
HPI - Extremity Problem General Chief complaint: Recheck/Abnormal Lab/Rx <Jeanne Marcus, TOBACCO STEMMER MACHINE - Last Filed: 12/31/24 16:40> Stated complaint: r/o DVT <Jeanne Marcus TOBACCO STEMMER MACHINE - Last Filed: 12/31/24 16:40> Time Seen by Provider: 12/31/24 16:30 <Jeanne Marcus TOBACCO STEMMER MACHINE - Last Filed: 12/31/24 16:40> Focused HPI: Patient is a 54-year-old male who presents to the ER with left calf pain. He reports his symptoms started on Sunday, 5 days ago. Patient reports he went into his primary care provider today who advised to come to the ER for further evaluation. He denies any chest pain, shortness of breath, or injury to the area. Patient reports he has had DVTs in the past, but they were surface level. He reports the pain is been steadily increasing. GENERAL: Well-appearing, well-nourished, and in no acute distress. HEAD: Normocephalic, atraumatic. CHEST: Clear to auscultation. ?No respiratory distress. HEART: Regular rate and rhythm.? NEURO: ?Alert and oriented x3. Patient screened in triage and initial orders placed.? ?Additional care and disposition to be based upon?diagnostic testing and treatment. <Jeanne Marcus, TOBACCO STEMMER MACHINE - Last Filed: 12/31/24 16:40> Focused HPI: Patient is a 54-year-old male who presents to the ER with left calf pain. He reports his symptoms started on Sunday, 5 days ago. Patient reports he went into his primary care provider today who advised to come to the ER for further evaluation. He denies any chest pain, shortness of breath, or injury to the area. Patient reports he has had DVTs in the past, but they were surface level. He reports the pain is been steadily increasing. GENERAL: Well-appearing, well-nourished, and in no acute distress. HEAD: Normocephalic, atraumatic. CHEST: Clear to auscultation. ?No respiratory distress. HEART: Regular rate and rhythm.? NEURO: ?Alert and oriented x3. Patient screened in triage and initial orders placed.? ?Additional care and disposition to be based upon?diagnostic testing and treatment. <Sugey De Jesus PA-C - Last Filed: 12/31/24 23:53> Source: patient <Sugey De Jesus PA-C - Last Filed: 12/31/24 23:53> Mode of arrival: ambulatory <Sugey De Jesus PA-C - Last Filed: 12/31/24 23:53> Limitations: no limitations <Sugey De Jesus PA-C - Last Filed: 12/31/24 23:53> History of Present Illness HPI Narrative: Agree with above HPI. History of varicose veins. Not currently on anticoagulation. <Sugey De Jesus PA-C - Last Filed: 12/31/24 23:53> Related Data Home medications: Home Medications ?Medication ?Instructions ?Recorded ?Confirmed ?Last Taken ?Type amlodipine 10 mg tablet 10 mg PO DAILY 05/23/22 12/31/24 Unknown History losartan 100 1 tablet PO DAILY 05/23/22 12/31/24 Unknown History mg-hydrochlorothiazide 25 mg tablet pantoprazole 40 mg tablet,delayed 40 mg PO DAILY 05/23/22 12/31/24 Unknown History release rosuvastatin 10 mg tablet 10 mg PO DAILY 05/23/22 12/31/24 Unknown History gabapentin 300 mg capsule 300 mg PO BID 08/04/23 12/31/24 Unknown History bupropion HCl 150 mg 24 hr tablet, mg PO 12/31/24 Unknown History extended release <Jeanne Marcus APRN - Last Filed: 12/31/24 16:40> Allergies/Adverse reactions: Allergies Allergy/AdvReac Type Severity Reaction Status Date / Time No Known Allergies Allergy Verified 12/31/24 16:15 <Jeanne Marcus APRN - Last Filed: 12/31/24 16:40> Review of Systems Review of Systems: All systems reviewed & are unremarkable except as noted in HPI. <Sugey De Jesus PA-C - Last Filed: 12/31/24 23:53> All systems reviewed & are unremarkable except as noted in HPI and below <Sugey De Jesus PA-C - Last Filed: 12/31/24 23:53> PMFSH Past Medical History Medical History: Medical History Essential hypertension <Jeanne Marcus APRN - Last Filed: 12/31/24 16:40> Family History Family History: Family History Mother Family history of coronary artery disease <Jeanne Marcus TOBACCO STEMMER MACHINE - Last Filed: 12/31/24 16:40> Social History Social History: Social History Smoking status: Never smoker Alcohol intake: current <Jeanne Marcus APRN - Last Filed: 12/31/24 16:40> Exam Narrative: GENERAL: Well appearing, well-nourished, non-toxic, in no acute distress. HEAD: Normocephalic, atraumatic. RESPIRATORY: Airway patent, respirations nonlabored. CARDIOVASCULAR: Regular rate and rhythm. Pedal pulses are strong and easily palpable. MUSCULOSKELETAL: Moves all extremities. No gross deformities. Scattered varicose veins throughout bilateral lower extremities. Varicosities throughout left calf region which appears slightly injury did, mildly tender to palpation. Slight warmth/erythema present. No significant swelling of left lower extremity. Sensation intact. SKIN: Warm, dry, normal color. NEURO: A&O X3. Speech clear. Cranial nerves II-XII grossly intact. Steady gait. No ataxic movements. PSYCHIATRIC: Appropriate mood and affect. Normal interaction. <Sugey De Jesus PA-C - Last Filed: 12/31/24 23:53> Course Vital Signs Vital signs: Vital Signs Temperature 97.7 F 12/31/24 16:28 Pulse Rate 98 12/31/24 16:28 Respiratory Rate 16 12/31/24 16:28 Blood Pressure 175/90 H 12/31/24 16:28 Pulse Oximetry 98 12/31/24 16:28 Temperature 97.8 F 12/31/24 22:34 Pulse Rate 91 12/31/24 22:34 Respiratory Rate 14 12/31/24 22:34 Blood Pressure 163/84 H 12/31/24 22:34 Pulse Oximetry 100 12/31/24 22:34 <Jeanne Marcus APRN - Last Filed: 12/31/24 16:40> Vital Signs Temperature 97.7 F 12/31/24 16:28 Pulse Rate 98 12/31/24 16:28 Respiratory Rate 16 12/31/24 16:28 Blood Pressure 175/90 H 12/31/24 16:28 Pulse Oximetry 98 12/31/24 16:28 Temperature 97.8 F 12/31/24 22:34 Pulse Rate 91 12/31/24 22:34 Respiratory Rate 14 12/31/24 22:34 Blood Pressure 163/84 H 12/31/24 22:34 Pulse Oximetry 100 12/31/24 22:34 <Sugey De Jesus PA-C - Last Filed: 12/31/24 23:53> MDM - Extremity (Nontraumatic) MDM Narrative Medical decision making narrative: Venous Doppler ultrasound negative for DVT. Discussed this with patient. Discussed possibility of superficial thrombophlebitis and management of such. Given warmth, erythema, slight induration, will also cover for potential cellulitis. Will be started on Keflex. Advised to have close follow-up with PCP. Given strict return precautions. He is in agreement with plan. Vital signs are otherwise stable. No tachycardia or hypoxia to suggest PE. Has been denying any chest pain or shortness of breath at home. Feels comfortable going home. Discharged in stable condition. <Sugey De Jesus PA-C - Last Filed: 12/31/24 23:53> Medical Records Attestation: I reviewed the patient's medical records. <Sugey De Jesus PA-C - Last Filed: 12/31/24 23:53> Imaging Data Attestation: I personally reviewed and interpreted this imaging study as follows: <GERARDO Aviles Last Filed: 12/31/24 23:53> Radiologist's impression: ITS Impressions Venous Doppler Study 12/31/24 17:03 IMPRESSION: 1. No deep venous thrombosis. <GERARDO Aviles Last Filed: 12/31/24 23:53> Discharge Plan Discharge Clinical Impression: Pain of left calf, Cellulitis of left lower leg <Jeanne Marcus APRN - Last Filed: 12/31/24 16:40> Patient Disposition: Home <Jeanne Marcus APRN - Last Filed: 12/31/24 16:40> Condition: Stable <Jeanne Marcus APRN - Last Filed: 12/31/24 16:40> Instructions: Antibiotic Form, Cellulitis (ED), Superficial Thrombophlebitis (ED) <Jeanne Marcus APRN - Last Filed: 12/31/24 16:40> Additional Instructions: Recommend warm compresses, anti-inflammatories as needed to left calf. May wear compression stockings. Take antibiotics as prescribed. Follow-up with your primary care doctor for further evaluation. Return to the ED for worsening or severe pain/swelling, worsening redness, chest pain, difficulty breathing, or any other symptoms of concern. <Jeanne Marcus APRN - Last Filed: 12/31/24 16:40> Patient Language: Burmese <Jeanne Marcus APRN - Last Filed: 12/31/24 16:40> Prescriptions: New cephalexin 500 mg capsule 500 mg PO Q6H 7 Days Qty: 28 0RF No Action gabapentin 300 mg capsule 300 mg PO BID losartan-hydrochlorothiazide 100-25 mg tablet 1 tablet PO DAILY amlodipine 10 mg tablet 10 mg PO DAILY pantoprazole 40 mg tablet,delayed release (DR/EC) 40 mg PO DAILY rosuvastatin 10 mg tablet 10 mg PO DAILY bupropion HCl 150 mg tablet extended release 24 hr PO <Jeanne Marcus APRN - Last Filed: 12/31/24 16:40> Follow-up/Referrals: PHYSICIAN NOT ON STAFF,NONSTAFF [Primary Care Provider] - <Jeanne Marcus APRN - Last Filed: 12/31/24 16:40> Time of Disposition: 22:02 <Jeanne Marcus APRN - Last Filed: 12/31/24 16:40> 22:02 <Sugey De Jesus PA-C - Last Filed: 12/31/24 23:53>
--- OUTSIDE RECORDS SUMMARY | 2024-12-31 19:42 | XMS_ITS | Clinical Summary ---
Author Organization [facility] [address] [place] [address] [place] [id number] Care Team Providers Care Printer Slotter Helper Name Role Phone William Phillips DO Primary Care Provider [phone] Allergies No known active allergies Medications pimecrolimus [...] Type Department Care Team Description 12/23/2024 Refill [facility], [address] [place] [phone] William Phillips DO HTN (hypertension), benign; Gastroesophageal reflux disease, unspecified whether esophagitis present; Hyperlipidemia, unspecified hyperlipidemia type 11/11/2024 External Device Data [facility] ABSTRACTION Provider, Abstract 11/07/2024 [facility], 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 [place] [phone] William Phillips DO [address] [phone] Health Maintenance Due Date Last [...] Grewal MD - 08/05/2020 7:07 AM CDT [facility] Endoscopy Patient Name: Mirza Sin [...] Addenda: 0 Procedure Date: 08/05/2020 6:37:[address] [place] [address] William Grewal MD GI PROCEDURE ORDERABLES Final Re sult from Last 3 Months or Most Recently Relevant to Health Maintenance Insurance Advance Directives For more information, please contact: [phone] * Full Code (Latest Code Status on File) Date Activated Date Inactivated Comments 08/05/2020 6:35 AM 08/05/2020 10:10 AM Care Teams Printer Slotter Helper Relationship Specialty Start Date End Date William Phillips DO [address] [place] [address] PCP - General Internal Medicine 06/12/19
--- OUTSIDE RECORDS SUMMARY | 2024-12-31 19:42 | XMS_ITS | Clinical Summary ---
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 Gender Identity Not on file Sexual Orientation [...] this topic Medical Devices Implanted Type Area Track Laying Supervisor Device Identifier Shelf Expiration Date Model / Serial / Lot [employer] [id number] Persona Cruciate Retaining Knee Left 9 Standard Component Femoral - [id number] Implanted:Qty: 1 on 09/18/2022 by Yonatan Parry MD at [facility] Left: Knee [employer] [id number] 06/02/2032 [id number] / / [id number] [employer] Persona 11mm Knee Left 8-11 E-F Insert Articular Vivacit-E [id number] - [id number] Implanted:Qty: 1 on 09/18/2022 by Yonatan Parry MD at [facility] Left: Knee [employer] [id number] 03/28/2027 [id number] / / [id number] [employer] [id number] Persona 2 Peg Knee Left F Baseplate Tibial Trabecular Metal - [id number] Implanted:Qty: 1 on 09/18/2022 by Yonatan Parry MD at [facility] Left: Knee [employer] [id number] 04/16/2032 [id number] / / [id number] [place] [address] [facility] [employer] [employer] [facility]PPO Address: [address] [place] [address] [facility] [employer] [facility] Address: [place] [address] [facility] [employer] [facility]/[employer]O Address: [place] [address] Advance Directives For more information, please contact: [phone] * Full Code (Latest Code Status on File) Date Activated Date Inactivated Comments 09/18/2022 10:40 AM 09/19/2022 4:43 PM Care Teams Captain/Airline Pilot Relationship Specialty Start Date End Date William Phillips DO PCP - General Internal Medicine 09/11/22
[2024-12-31 19:45] VITALS: RESP 15
[2024-12-31] MEDS: CEPHALEXIN 500 MG CAPSULE PO (22:11)
[2024-12-31 22:34] VITALS: BP 163/84; PULSE 91; RESP 14; TEMP 36.6; O2SAT 100
== END 2024-12-31 22:36 | disposition home or self-care (01) ==
PROVIDERS: Emergency Provider Physician Assistant
DX: M79.662 Pain in left lower leg (principal); L03.116 Cellulitis of left lower limb; I10 Essential (primary) hypertension
CPT/HCPCS: 93971; 99284; A9270